=== PATIENT | male | born 2005 | race Caucasian/White ===

== ENCOUNTER 2025-04-09 13:32 | Emergency (ER) | payer OTHER ==
[2025-04-09 14:28] LABS: #Basophils 0.10 10x3/uL (0.0-0.2); #Eosinophils Less than 0.03 10x3/uL (0.0-0.5); #Monocytes 0.40 10x3/uL (0.0-1.1); #Neutrophils 9.54 10x3/uL (1.5-8.4); %Basophils 0.9 % (0.0-2.0); %Eosinophils 0.1 % (0.0-6.0); %Lymphocytes 8.4 % (18.0-47.0); %Monocytes 3.6 % (0.0-10.0); %Neutrophils 86.6 % (40.0-75.0); Hematocrit 44.1 % (38.8-50.0); Hemoglobin 15.6 g/dL (13.5-17.5); Mean Corpuscular Hemoglobin 32.0 pg (27.0-33.0); Mean Corpuscular Volume 90.6 fL (81.2-95.1); Platelet Count 273 10x3/uL (150-450); Red Blood Cell (RBC) Count 4.87 10x6/uL (4.32-5.72); White Blood Cell (WBC) Count 11.02 10x3/uL (3.5-10.5)
[2025-04-09] MEDS ORDERED: Ketorolac Tromethamine 30 MG (1 mL) VIAL ONE (14:32)
[2025-04-09 15:04] LABS: ALT (SGPT) 18 U/L (Less than 45); AST (SGOT) 26 U/L (11-34); Albumin 4.8 g/dL (3.1-4.5); Alkaline Phosphatase 98 U/L (50-130); Anion Gap 16 mmol/L (10-20); BUN (Urea Nitrogen) 13 mg/dL (8.9-20.6); Bilirubin, Total 0.5 mg/dL (0.3-1.2); Calc. Creatinine Clearance 0 mL/min (70-130); Calcium 10.1 mg/dL (7.8-10.44); Carbon Dioxide 25 mmol/L (22-29); Chloride 106 mmol/L (98-107); Globulin 3.6 g/dL (2.4-3.5); Glucose 124 mg/dL (70-105); Potassium 3.6 mmol/L (3.5-5.1); Sodium 143 mmol/L (136-145)
[2025-04-09] MEDS ORDERED: diphenhydrAMINE 50 MG/ML VIAL ONE (15:24)
== END 2025-04-09 15:55 | disposition home or self-care (01) ==
LOC: CSHERS 13:32
DX: R11.16 Cannabis hyperemesis syndrome (principal); F12.10 Cannabis abuse, uncomplicated
CPT/HCPCS: 80053; 85025; J1200; J1630; J1885